=== PATIENT | male | born 1945 | race African-American/Black ===

== ENCOUNTER → 2016-10-16 | Outpatient (CLI) | payer BC, MEDICARE ==
[~2016-10-16] MED LIST: (NONE)120 M1 PO; ASPIRINEC PO; BENICAR HCT 20-1 TA1; BENICAR PO; CELEBREX PO; CERTAGEN PO; CIALIS PO; CLEOCIN PO; COLACE PO; COUMADIN PO; COUMADIN2.5 MG PO; COUMADIN5 MG PO; DEPAKOTE ER PO; HYDRALAZINE HCL25 MG; HYDRALAZINE HCL50 MG PO; HYDROCODONE-APA1 T33 PO; HYDROCODONE-APA1 T44; INDOMETHACIN25 MG PO; K-DUR10 MEQ PO; KDUR PO; LASIX PO; LISINOPRIL10 MG PO; LITHOBID SR300 MG PO; LOPRESSOR PO; MULTAQ400 MG PO; NIASPAN PO; NORCO 5/325 TAB1 TAB PO; NORVASC PO; PRILOSEC PO; RYTHMOL; SPIRIVA18 MCG IH; TEKTURNA PO; ZETIA PO
--- NOTE | ~2016-10-16 | CT57 ---
[facility] A Service of [facility] RADIOLOGY TEXT RESULTS PATIENT: ANATOLIY DENNY SR LOCATION: [facility] : 41 UNIT #: [id number] AGE: [address]: Charmaine Vasquez APRN SEX: M ORDER DR: [id number] [facility] [address] [place], [place] [address] [id number] O MR#: [id number] [facility] #: [id number] NAME: ANATOLIY DENNY : 1945 SEX: M STUDY DATE/TIME: 10/16/2016 12:41 UNIT: [facility] ROOM: STUDY DESCRIPTION: CT Chest Wo Cont Attending Physician: Charmaine Vasquez A.P.R.N. Referring Physician: Charmaine Vasquez A.P.R.N. Ordering Physician: Charmaine Vasquez A.P.R.N. Primary Care Physician: Sukhjinder Morgan M.D. MEDICAL IMAGING REPORT This report is preliminary unless electronic signature is present EXAM CT chest without contrast INDICATIONS Abnormal chest x-ray at ordering physician's office. Right lower lobe density. Wheezing for the past [address] chest. This CT exam was performed with one or more of the following radiation dose reduction techniques: automatic exposure control, adjustment of mA and/or kV according to patient size, and iterative reconstruction. COMPARISON 10/13/2015 FINDINGS Scattered areas of linear scarring. No dense consolidation or suspicious pulmonary nodule. Mild cardiomegaly. Previous pacer placement. Coronary artery calcification. No adenopathy. I suspect a 2.8-cm nodule along the inferior left thyroid lobe is unchanged. No acute findings in the included upper abdomen. No aggressive-appearing bone lesion. IMPRESSION 1. No acute findings in the chest. No evidence for metastatic disease. 2. No change from 10/13/2015. Dictated by... Marvin Hamilton M.D. THIS IS AN ELECTRONICALLY VERIFIED REPORT Marvin Hamilton M.D. at 10/17/2016 7:09 AM [facility] A Service of [facility] RADIOLOGY TEXT RESULTS PATIENT: ANATOLIY DENNY SR LOCATION: [facility] : 41 UNIT #: [id number] AGE: [address]: Charmaine Vasquez APRN SEX: M ORDER DR: Alondra TD: 10/16/2016 17:05 JOB #: [id number] MEDICAL IMAGING REPORT Page 1 of 1 COPY
== END | disposition home or self-care (01) ==
LOC: CCAT 12:18
DX: J98.4 Other disorders of lung (principal); R91.8 Other nonspecific abnormal finding of lung field
CPT/HCPCS: 71250